=== PATIENT | female | born 1955 | race Caucasian/White ===

== ENCOUNTER 2019-03-01 06:02 | Inpatient (IN) ==
[~2019-03-01 06:02] MED LIST: ACETAMINOPHEN 1,000 MG/100 ML VIAL IV ONE; FAMOTIDINE 20 MG/2 ML VIAL IV ONE; HEPARIN 5,000 UNIT/1 ML VIAL ONE; HYOSCYAMINE 0.125 MG TABLET ONE; PANTOPRAZOLE 40 MG VIAL IV ONE; SCOPOLAMINE 1.5 MG PATCH TRANSDERM ONE
[2019-03-01] MEDS ORDERED: TISSUE ADHESIVE 1 EACH APPLICATOR TOP ONE (06:27)
[2019-03-01] MEDS ORDERED: BUPIVACAINE 0.5% 50 ML VIAL ONE (06:27)
[2019-03-01] MEDS ORDERED: LIDOCAINE 1%/EPI INJ 20 ML VIAL ONE (06:27)
[2019-03-01] MEDS ORDERED: BUPIVACAINE LIPOSOMAL 20 ML/266 MG VIAL ONE (06:28)
[2019-03-01] MEDS ORDERED: ACETAMINOPHEN INJ 1,000 MG in PREMIX 1 EACH IV ONE (06:30)
[2019-03-01] MEDS ORDERED: LACTATED RINGERS 1,000 ML IV ONE (06:30)
[2019-03-01] MEDS ORDERED: HYOSCYAMINE 0.125 MG TABLET PO ONE (06:30)
[2019-03-01] MEDS ORDERED: HEPARIN 5,000 UNIT/1 ML VIAL SUBCUT ONE (06:30)
[2019-03-01] MEDS ORDERED: SCOPOLAMINE 1.5 MG PATCH TRANSDERM ONE (06:30)
[2019-03-01] MEDS ORDERED: cefOXitin 2,000 MG in SYRINGE 1 EACH IV ONE (06:30)
[2019-03-01] MEDS ORDERED: PANTOPRAZOLE 40 MG VIAL IV ONE (06:30)
[2019-03-01] MEDS ORDERED: MIDAZOLAM 2 MG/2 ML VIAL ONE (09:22)
[2019-03-01] MEDS ORDERED: fentaNYL 100 MCG/2 ML VIAL ONE (09:22)
[2019-03-01] MEDS ORDERED: HYDROmorphone 2 MG/1 ML VIAL IV PRN (09:22)
[2019-03-01] MEDS ORDERED: ONDANSETRON 4 MG/2 ML VIAL IV PRN ×2 (09:22→11:23)
[2019-03-01] MEDS ORDERED: SEVOFLURANE 1 UNIT/15 MINUTE INH ONE (09:22)
[2019-03-01] MEDS ORDERED: PROPOFOL 200 MG/20 ML VIAL IV ONE (09:22)
[2019-03-01] MEDS ORDERED: GLYCOPYRROLATE 0.4 MG/2 ML VIAL ONE (09:23)
[2019-03-01] MEDS ORDERED: ROCURONIUM 100 MG/10 ML VIAL IV ONE (09:23)
[2019-03-01] MEDS ORDERED: KETOROLAC 30 MG/1 ML VIAL ONE (09:23)
[2019-03-01] MEDS ORDERED: PHENYLEPHRINE 10 MG/1 ML VIAL IV ONE (09:23)
[2019-03-01] MEDS ORDERED: NEOSTIGMINE 10 MG/10 ML VIAL ONE (09:23)
[2019-03-01] MEDS ORDERED: LACTATED RINGERS 1,000 ML IV SCH (09:30)
[2019-03-01] MEDS ORDERED: MORPHINE 4 MG/1 ML VIAL IV PRN (11:23)
[2019-03-01] MEDS ORDERED: HYDROcod/ACETAMIN 7.5-325 MG/15 ML UDCUP PO PRN (11:23)
[2019-03-01] MEDS ORDERED: hydrALAZINE 20 MG/1 ML VIAL IV PRN (11:23)
[2019-03-01] MEDS: LACTATED RINGERS 1,000 ML IV SCH ×2 (15:45→19:10)
[2019-03-01] MEDS: ceFAZolin 2,000 MG in PREMIX 1 EACH IV SCH (19:10)
[2019-03-02] MEDS: ceFAZolin 2,000 MG in PREMIX 1 EACH IV SCH (00:38)
[2019-03-02] MEDS: LACTATED RINGERS 1,000 ML IV SCH ×2 (01:50→09:14)
[2019-03-02 05:59] LABS: Basophils % 0.1 % (0.0-0.8); Hematocrit 41.3 VOL% (35.7-47.0); Immature Granulocytes % 0.4 %; Immature Granulocytes Absolute 0.04 #; Lymphocytes # 0.7 10*3/uL (1.4-4.0); Lymphocytes % 6.2 % (21.3-54.2); Mean Corpuscular HGB Conc 31.5 GM/DL (32-36); Mean Corpuscular Hemoglobin 29 PG (27-34); Mean Corpuscular Volume 90.8 FL (87-102); Mean Platelet Volume 10.9 FL (9.6-12.0); Monocytes # 0.5 10*3/uL (0.11-0.8); Monocytes % 5.1 % (1.7-12.7); Neutrophils # 9.4 10*3/uL (1.4-7.4); Neutrophils % 88.2 % (38.7-73.9); Platelet Count 232 T/CUMM (130-400); Red Blood Count 4.55 MC/CUMM (3.8-5.5); Red Cell Distribution Width 13.2 % (9.3-17.3); White Blood Count 10.6 T/CUMM (4-12)
[2019-03-02 06:20] LABS: Calcium 8.6 MG/DL (8.5-10.1); Osmolality,Calculated 281.3 MOS/KG (273-304); Potassium 3.8 MMOL/L (3.5-5.1)
[2019-03-02 07:53] VITALS: BP 115/77
[2019-03-02] MEDS ORDERED: PANTOPRAZOLE 40 MG VIAL IV SCH (09:00)
[2019-03-02] MEDS ORDERED: SIMETHICONE CHEW 80 MG TABLET PO SCH (11:23)
[2019-03-03] MEDS ORDERED: ENOXAPARIN 40 MG/0.4 ML SYRINGE SUBCUT SCH (09:00)
== END 2019-03-02 12:20 | disposition home or self-care (01) | DRG 620 ==
LOC: N.SDSINP 06:02 → N.3E 09:52
PROVIDERS: ADMIT Surgery; ATTEND Surgery